=== PATIENT | male | born 1980 | race Hispanic/Latino ===

== ENCOUNTER 2020-08-09 | Emergency (ER) | payer BC, SELFPAY ==
--- NOTE | 2020-08-09 15:38 | ER ---
Nurse's Notes [facility] Name: Wily Cooper Age: 40 yrs Sex: Male : 1980 Arrival Date: 08/09/2020 Time: 14:02 Bed Waiting Private MD: Diagnosis: Assessment: 08/09 14:44 Reassessment: Called patient to TRAIGE no answer. Bystander states, "I think he left.". ss 15:02 Reassessment: called to triage. Unable to locate patient. ss 15:36 Reassessment: Called again to triage, no answer. Unable to locate patient. Appears to ss have eloped before triage. ED Course: 14:02 Patient arrived in ED. rg4 Administered Medications: No medications were administered Outcome: 15:37 Eloped from waiting room. ss 15:37 Patient left the ED. Signatures: Mary Wilburn, RN RN Meenakshi Guadarrama rg4
== END 2020-08-09 15:37 | disposition left against medical advice (07) ==
DX: Z02.9 Encounter for administrative examinations, unspecified (principal)

== ENCOUNTER 2020-08-09 16:52 | Emergency (ER) | payer SELFPAY ==
--- NOTE | 2020-08-09 17:54 | RAD REPORT ---
EXAM DESCRIPTION: RAD - Foot Left 3 View - 08/09/2020 5:45 pm CLINICAL HISTORY: Left Foot pain status post injury FINDINGS: No fracture or dislocation is seen.
--- NOTE | 2020-08-09 19:46 | ER ---
Nurse's Notes [facility] Name: Wily Cooper Age: 40 yrs Sex: Male : 1980 Arrival Date: 08/09/2020 Time: 16:53 Bed Waiting [facility] MD: Diagnosis: Contusion of left foot Presentation: 08/09 17:25 Chief complaint: Patient states: L foot pain and swelling that began 08/07 after a ss sledge hammer fell onto foot. Pt is ambulatory with steady gait. Coronavirus screen: Client denies travel out of the [place] in the last 14 days. Ebola Screen: Patient denies exposure to infectious person. Patient denies travel to an Ebola-affected area in the 21 days before illness onset. Initial Sepsis Screen: Does the patient meet any 2 criteria? No. Patient's initial sepsis screen is negative. Does the patient have a suspected source of infection? No. Patient's initial sepsis screen is negative. Risk Assessment: Do you want to hurt yourself or someone else? Patient reports no desire to harm self or others. Onset of symptoms was August 07, 2020. 17:25 Method Of Arrival: Ambulatory 17:25 Acuity: ZONIA 4 ss Historical: - Allergies: 17:27 No Known Allergies; ss - PMHx: 17:27 Hypertension; High Cholesterol; ss - PSHx: 17:27 Appendectomy; ss - Immunization history:: Adult Immunizations up to date. - Social history:: Smoking status: Patient denies any tobacco usage or history of. Screenin:41 Abuse screen: Denies threats or abuse. Denies injuries from another. Nutritional lp1 screening: No deficits noted. Tuberculosis screening: No symptoms or risk factors identified. Fall Risk None identified. Assessment: 19:35 Reassessment: Dr. Dickerson assessing patient. lp1 19:40 General: Appears in no apparent distress. Behavior is calm. Pain: Complains of pain in lp1 dorsum of left foot. Neuro: No deficits noted. Cardiovascular: No deficits noted. Respiratory: Respiratory effort is even, unlabored. GI: No signs and/or symptoms were reported involving the gastrointestinal system. : No signs and/or symptoms were reported regarding the genitourinary system. EENT: No signs and/or symptoms were reported regarding the EENT system. Derm: Bruising that is on dorsum of left foot. Musculoskeletal: Swelling present in dorsum of left foot. 19:41 Reassessment: Patient able to bear weight on left foot. lp1 Vital Signs: 17:25 BP 141 / 99; Pulse 100; Resp 15; Temp 98.3(TE); Pulse Ox 99% on R/A; Weight 120.2 kg; ss Height 5 ft. 9 in. (175.26 cm); Pain 8/10; 17:25 Body Mass Index 39.13 (120.20 kg, 175.26 cm) ED Course: 16:53 Patient arrived in ED. rg4 17:26 Triage completed. ss 17:27 Arm band placed on right wrist. ss 17:40 XRAY Foot LEFT 3 View In Process Unspecified. EDMS 19:32 Deny Dickerson MD is Attending Physician. tw4 19:40 Fidelina Paredes, RN is Primary Nurse. lp1 19:41 Patient has correct armband on for positive identification. lp1 19:41 No provider procedures requiring assistance completed. Patient did not have IV access lp1 during this emergency room visit. 19:42 Westley wrap to left foot. lp1 Administered Medications: 19:54 Drug: Ibuprofen 800 mg Route: PO; lp1 19:55 Follow up: Response: Medication administered at discharge. lp1 Outcome: 19:45 Discharge ordered by . tw4 19:55 Discharged to home ambulatory. lp1 19:55 Condition: good 19:55 Discharge instructions given to patient, Instructed on discharge instructions, follow up and referral plans. medication usage, Demonstrated understanding of instructions, follow-up care, medications, Prescriptions given X 1. 19:55 Patient left the ED. lp1 Signatures: Dispatcher [employer] EDKY Mary Wilburn, HEMA RN Fidelina Paredes, RN RN lp1 Meenkashi [facility] Deny Dickerson MD MD 4
--- NOTE | 2020-08-09 19:46 | EDPHYS ---
Physician Documentation [facility] Name: Wily Cooper Age: 40 yrs Sex: Male : 1980 Arrival Date: 08/09/2020 Time: 16:53 Bed Waiting Private MD: ED Physician Deny Dickerson HPI: 08/09 19:39 This 40 yrs old Male presents to ER via Ambulatory with complaints of Foot tw4 Injury. 19:39 The patient presents with an injury. tw4 19:39 The complaints affect the left foot. Context: The problem was sustained at work, tw4 resulted from a heavy object falling, Mechanism of Injury: the patient can fully bear weight, the patient is able to ambulate. Onset: The symptoms/episode began/occurred today. Modifying factors: The symptoms are alleviated by nothing, the symptoms are aggravated by weight bearing, movement. Associated signs and symptoms: The patient has no apparent associated signs or symptoms. The patient has not experienced similar symptoms in the past. Historical: - Allergies: 17:27 No Known Allergies; ss - PMHx: 17:27 Hypertension; High Cholesterol; ss - PSHx: 17:27 Appendectomy; ss - Immunization history:: Adult Immunizations up to date. - Social history:: Smoking status: Patient denies any tobacco usage or history of. ROS: 19:39 MS/extremity: Positive for injury or acute deformity, pain, swelling, tenderness, tw4 Negative for abrasion, bite, contusion, decreased range of motion, deformity, ecchymosis, laceration. 19:39 Constitutional: Negative for fever, chills, and weight loss, Eyes: Negative for injury, pain, redness, and discharge, Cardiovascular: Negative for chest pain, palpitations, and edema, Respiratory: Negative for shortness of breath, cough, wheezing, and pleuritic chest pain, Abdomen/GI: Negative for abdominal pain, nausea, vomiting, diarrhea, and constipation, Back: Negative for injury and pain, MS/Extremity: Negative for injury and deformity, Skin: Negative for injury, rash, and discoloration, Neuro: Negative for headache, weakness, numbness, tingling, and seizure. Exam: 19:39 Constitutional: This is a well developed, well nourished patient who is awake, alert, tw4 and in no acute distress. Head/Face: Normocephalic, atraumatic. 19:39 Musculoskeletal/extremity: Extremities: noted in the left first toe, left second toe, left third toe, left fourth toe and left fifth toe: contusion, ecchymosis, pain, swelling, tenderness, ROM: no acute changes, Circulation is intact in all extremities. Vital Signs: 17:25 BP 141 / 99; Pulse 100; Resp 15; Temp 98.3(TE); Pulse Ox 99% on R/A; Weight 120.2 kg; ss Height 5 ft. 9 in. (175.26 cm); Pain 8/10; 17:25 Body Mass Index 39.13 (120.20 kg, 175.26 cm) ss MDM: 19:39 Differential diagnosis: fracture, sprain, gout. Data reviewed: vital signs, nurses tw4 notes. Data reviewed: radiologic studies, plain films. Data interpreted: Pulse oximetry: Interpretation: normal. Counseling: I had a detailed discussion with the patient and/or guardian regarding: the historical points, exam findings, and any diagnostic results supporting the discharge/admit diagnosis, radiology results. Special discussion: I discussed with the patient/guardian in detail that at this point there is no indication for admission to the hospital. It is understood, however, that if the symptoms persist or worsen the patient needs to return immediately for re-evaluation. 19:45 Patient medically screened. tw4 08/09 17:28 Order name: ABDULKADIRAY Foot LEFT 3 View; Complete Time: 18:46 ss Administered Medications: 19:54 Drug: Ibuprofen 800 mg Route: PO; lp1 19:55 Follow up: Response: Medication administered at discharge. lp1 Disposition: 08/09/20 19:45 Discharged to Home. Impression: Contusion of left foot. - Condition is Stable. - Discharge Instructions: Contusion. - Prescriptions for Ibuprofen 800 mg Oral Tablet - take 1 tablet by ORAL route every 8 hours As needed take with food; 30 tablet. - Medication Reconciliation Form, Thank You Letter, Antibiotic Education, Prescription Opioid Use form. - Follow up: Private Physician; When: Upon discharge from the Emergency Department; Reason: Recheck today's complaints, Continuance of care, Re-evaluation by your physician. - Problem is new. - Symptoms have improved. Signatures: Dispatcher [employer] EDMI Mary Wilburn RN Fidelina Christensen RN RN lp1 Ismael Stark, ACCOUNTING REPRESENTATIVE ACCOUNTING REPRESENTATIVE pm1 Deny Dickerson MD MD tw4 Corrections: (The following items were deleted from the chart) 19:55 19:45 08/09/2020 19:45 Discharged to Home. Impression: Contusion of left foot. lp1 Condition is Stable. Forms are Medication Reconciliation Form, Thank You Letter, Antibiotic Education, Prescription Opioid Use. Follow up: Private Physician; When: Upon discharge from the Emergency Department; Reason: Recheck today's complaints, Continuance of care, Re-evaluation by your physician. Problem is new. Symptoms have improved. tw4
[2020-08-09] MEDS ORDERED: IBUPROFEN 400 MG TAB ONE (20:02)
[2020-08-09 20:55] VITALS: BP 141/99; TEMP 98.3; O2SAT 99
== END 2020-08-09 19:55 | disposition home or self-care (01) ==
LOC: ER 16:52
DX: S90.32XA Contusion of left foot, initial encounter (principal); W22.8XXA Striking against or struck by other objects, initial encounter; Y93.9 Activity, unspecified; Y92.9 Unspecified place or not applicable
CPT/HCPCS: 99284

== ENCOUNTER 2020-08-15 08:58 | Emergency (ER) | payer SELFPAY ==
--- NOTE | 2020-08-15 12:59 | EDPHYS ---
Physician Documentation [facility] Name: Wily Cooper Age: 40 yrs Sex: Male : 1980 Arrival Date: 08/15/2020 Time: 09:00 Bed 20 Private MD: Jamir Sidhu T ED Physician Davi Pérez HPI: 08/15 12:53 This 40 yrs old Male presents to ER via Ambulatory with complaints of Flu rn Symptoms. 12:53 The patient or guardian reports cough, flu symptoms, low-grade fever. rn 12:53 Onset: The symptoms/episode began/occurred 3 day(s) ago. Severity of symptoms: At their rn worst the symptoms were mild, in the emergency department the symptoms are unchanged. Modifying factors: The symptoms are alleviated by nothing, the symptoms are aggravated by nothing. The patient has not experienced similar symptoms in the past. The patient has been recently seen by a physician:. Reports cough for 3 days, mild sob, tested neg for COVID x 3, here because still doesn't feel well. . Historical: - Allergies: 09:41 No Known Allergies; ss - PMHx: 09:41 High Cholesterol; Hypertension; ss - PSHx: 09:41 Cholecystectomy; ss - Immunization history:: Adult Immunizations up to date. - Social history:: Smoking status: Patient denies any tobacco usage or history of. - Family history:: not pertinent. - Hospitalizations: : No recent hospitalization is reported. 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 Exam: 12:53 Constitutional: This is a well developed, well nourished patient who is awake, alert, rn and in no acute distress. Head/Face: Normocephalic, atraumatic. ENT: No stridor Cardiovascular: Regular rate and rhythm. No pulse deficits. Respiratory: No increased work of breathing, no retractions or nasal flaring. Neuro: Awake and alert, GCS 15 Vital Signs: 09:38 BP 161 / 105; Pulse 100; Resp 16; Temp 98.6(TE); Pulse Ox 98% on R/A; Weight 122.47 kg; ss Height 5 ft. 9 in. (175.26 cm); Pain 0/10; 12:51 BP 130 / 92; Pulse 98; Resp 17; Pulse Ox 99% on R/A; tw2 09:38 Body Mass Index 39.87 (122.47 kg, 175.26 cm) ss MDM: 11:37 Patient medically screened. rn 12:53 Differential Diagnosis: Bronchitis Influenza Upper Respiratory Infection Viral Syndrome rn Pneumonia. Data reviewed: vital signs, nurses notes, lab test result(s), radiologic studies, plain films, and as a result, I will discharge patient. Test interpretation: by ED physician or midlevel provider: plain radiologic studies, CXR clear of infiltrate. Counseling: I had a detailed discussion with the patient and/or guardian regarding: the historical points, exam findings, and any diagnostic results supporting the discharge/admit diagnosis, lab results, radiology results, the need for outpatient follow up, to return to the emergency department if symptoms worsen or persist or if there are any questions or concerns that arise at home. Special discussion: I discussed with the patient/guardian in detail that at this point there is no indication for admission to the hospital. It is understood, however, that if the symptoms persist or worsen the patient needs to return immediately for re-evaluation. 08/15 11:53 Order name: Flu; Complete Time: 12:52 rn 08/15 11:53 Order name: XRAY Chest (1 view) rn Administered Medications: No medications were administered Disposition: 08/15/20 12:59 Discharged to Home. Impression: Bronchitis, not specified as acute or chronic. - Condition is Stable. - Discharge Instructions: Acute Bronchitis, Adult, Cough, Adult. - Prescriptions for Zithromax Z- Orion 250 mg Oral Tablet - take 1 tablet by ORAL route as directed for 5 days Day 1 - take two (2) tablets one time. Day 2, 3, 4 , 5 take one (1) tablet once daily.; 6 tablet. - Medication Reconciliation Form, Thank You Letter, Antibiotic Education, Prescription Opioid Use, Work release form form. - Follow up: Private Physician; When: As needed; Reason: Recheck today's complaints, Re-evaluation by your physician. - Problem is new. - Symptoms have improved. 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 Impression: Bronchitis, not specified as tw2 acute or chronic. Condition is Stable. Forms are Medication Reconciliation Form, Thank You Letter, Antibiotic Education, Prescription Opioid Use. Follow up: Private Physician; When: As needed; Reason: Recheck today's complaints, Re-evaluation by your physician. Problem is new. Symptoms have improved. rn
--- NOTE | 2020-08-15 12:59 | ER ---
Nurse's Notes [facility] Name: Wily Cooper Age: 40 yrs Sex: Male : 1980 Arrival Date: 08/15/2020 Time: 09:00 Bed 20 Private MD: Jamir Sidhu T Diagnosis: Bronchitis, not specified as acute or chronic Presentation: 08/15 09:38 Chief complaint: Patient states: body aches, sweats and cough that began 3 days ago. Pt ss reports he was exposed to covid on 07/30, and had been swabbed twice which were negative. Pt was swabbed again after his symptoms began, but those results are pending. Coronavirus screen: The client indicates previous COVID test results are pending. Ebola Screen: Patient denies exposure to infectious person. Patient denies travel to an Ebola-affected area in the 21 days before illness onset. Initial Sepsis Screen: Does the patient meet any 2 criteria? No. Patient's initial sepsis screen is negative. Does the patient have a suspected source of infection? No. Patient's initial sepsis screen is negative. Risk Assessment: Do you want to hurt yourself or someone else? Patient reports no desire to harm self or others. Onset of symptoms was August 12, 2020. 09:38 Method Of Arrival: Ambulatory ss 09:38 Acuity: ZONIA 4 ss Historical: - Allergies: 09:41 No Known Allergies; ss - PMHx: 09:41 High Cholesterol; Hypertension; ss - PSHx: 09:41 Cholecystectomy; ss - Immunization history:: Adult Immunizations up to date. - Social history:: Smoking status: Patient denies any tobacco usage or history of. - Family history:: not pertinent. - Hospitalizations: : No recent hospitalization is reported. Screenin:06 Abuse screen: Denies threats or abuse. Nutritional screening: No deficits noted. tw2 Tuberculosis screening: No symptoms or risk factors identified. Fall Risk None identified. Assessment: 11:40 General: Appears in no apparent distress. obese, well groomed, Behavior is calm, tw2 cooperative, appropriate for age. Pain: Denies pain. Neuro: Level of Consciousness is awake, alert, obeys commands, Oriented to person, place, time, situation. Cardiovascular: Patient's skin is warm and dry. Respiratory: Airway is patent Respiratory effort is even, unlabored, Respiratory pattern is regular, symmetrical. GI: No signs and/or symptoms were reported involving the gastrointestinal system. : No signs and/or symptoms were reported regarding the genitourinary system. EENT: Reports nasal congestion nasal discharge. Musculoskeletal: Range of motion: pt reports body aches. 12:55 Reassessment: Patient appears in no apparent distress at this time. No changes from tw2 previously documented assessment. Patient and/or family updated on plan of care and expected duration. Pain level reassessed. Patient is alert, oriented x 3, equal unlabored respirations, skin warm/dry/pink. 13:01 Reassessment: provider at bedside at this time. tw2 13:07 Reassessment: Patient appears in no apparent distress at this time. No changes from tw2 previously documented assessment. Patient and/or family updated on plan of care and expected duration. Pain level reassessed. Patient is alert, oriented x 3, equal unlabored respirations, skin warm/dry/pink. Vital Signs: 09:38 BP 161 / 105; Pulse 100; Resp 16; Temp 98.6(TE); Pulse Ox 98% on R/A; Weight 122.47 kg; ss Height 5 ft. 9 in. (175.26 cm); Pain 0/10; 12:51 BP 130 / 92; Pulse 98; Resp 17; Pulse Ox 99% on R/A; tw2 09:38 Body Mass Index 39.87 (122.47 kg, 175.26 cm) ED Course: 09:00 Patient arrived in ED. ag5 09:00 Jamir Sidhu MD is Private Physician. 5 09:40 Triage completed. 09:41 Arm band placed on right wrist. 11:36 Bed in low position. Call light in reach. Pulse ox on. NIBP on. tw2 11:37 Davi Pérez MD is Attending Physician. rn 11:38 Evi Spencer RN is Primary Nurse. tw2 12:53 XRAY Chest (1 view) In Process Unspecified. EDMS 13:06 No provider procedures requiring assistance completed. Patient did not have IV access tw2 during this emergency room visit. Administered Medications: No medications were administered Outcome: 12:59 Discharge ordered by . rn 13:06 Discharged to home ambulatory. tw2 13:06 Condition: stable 13:06 Discharge instructions given to patient, Instructed on discharge instructions, follow up and referral plans. medication usage, Demonstrated understanding of instructions, follow-up care, medications, Prescriptions given X 1. 13:07 Patient left the ED. tw2 Signatures: Dispatcher [employer] EDMS Davi Pérez MD MD rn Smirch, Shelby, RN RN ss Evi Spencer RN RN tw2 Mag Muro ag5 Corrections: (The following items were deleted from the chart) 11:39 09:38 Acuity: ZONIA 3 [facility]
--- NOTE | 2020-08-15 13:19 | RAD REPORT ---
EXAM DESCRIPTION: RAD - Chest Single View - 08/15/2020 12:53 pm CLINICAL HISTORY: COUGH Chest pain. COMPARISON: CHEST SINGLE VIEW dated 04/14/2011 FINDINGS: Portable technique limits examination quality. The lungs are grossly clear. The heart is normal in size. No displaced fractures. IMPRESSION: No acute intrathoracic process suspected.
[2020-08-15 13:32] VITALS: TEMP 98.6
[2020-08-15 13:33] VITALS: BP 130/92; O2SAT 99
== END 2020-08-15 13:07 | disposition home or self-care (01) ==
LOC: ER 08:58
DX: J40 Bronchitis, not specified as acute or chronic (principal)
CPT/HCPCS: 71045; 87804; 99283

== ENCOUNTER 2023-06-28 18:42 | Emergency (ER) | payer OTHER, BC ==
--- OUTSIDE RECORDS SUMMARY | 2023-06-28 18:46 | XMS REPORT | Continuity of Care Document ---
:[address] [facility] t Address [address] [facility] [address] [place] [address] Care Team Providers Name Role Phone Modesto Boswell Primary Care Physician VERO KUHN Attending Clinician Unavailable MODESTO BOSWELL Attending Clinician Unavailable LAB90 Attending Clinician Unavailable Melia Allison RD Attending Clinician MARCO ANTONIO JESUS Attending Clinician Unavailable VERO KUHN Admitting Clinician Unavailable Payers Payer Name Policy Type Policy Number Effective Date Expiration Date S our [place] [id number] 2022 00:00:00 OUT OF STATE CIGNA 2 [id number] 2022 00:00:00 Problems Condition Condition Condition Status Onset Resolution Last Treating Co mments Source Name Details Category Date Date Treatment Clinician Date Well adult Well adult Disease Active Selene richter exam exam 2-20 Seybold 00:00: - 00 Externa l Right Right Disease Active Soo upper upper 2-20 Seybold quadrant quadrant 00:00: - abdominal abdominal 00 Exte rna pain pain l Gastroesop Gastroesop Disease Active Selene richter hageal hageal 2-20 Seybold reflux reflux 00:00: - disease disease 00 Externa without without l esophagiti esophagiti s s Prediabete Prediabete Disease Active 2021-08 Overview : Soo s s 2-28 Formattin Seybold 00:00: g of this - 00 note Externa might be l different from the original. Lab 07/2022 A1c 6.3 Class 3 Class 3 Disease Active 2021-08 Soo severe severe 2- Seybold obesity obesity 00:00: - due to due to 00 Externa excess excess l calories calories with with serious serious comorbidit comorbidit y and body y and body mass index mass index (BMI) of (BMI) of 40.0 to 40.0 to 44.9 in 44.9 in adult adult Reactive Reactive Disease Active 2021-08 Dayne y airway airway 2- Seybold disease disease 00:00: - without without 00 Externa complicati complicati l on on Chronic Chronic Disease Active 2021-08 Soo cough cough 09-30 Seybold 00:00: - 00 Externa l History of History of Disease Active 2021-08 Selene richter COVID-19 COVID-19 2- Seybol d 00:00: - 00 Externa l Snoring Snoring Disease Active 2021-08 Soo 2- Seybold 00:00: - 00 Externa l Chronic Chronic Disease Active 2021-08 Soo bilateral bilateral 2 Seyb old low back low back 00:00: - pain pain 00 Externa without without l sciatica sciatica Anxiety Anxiety Disease Active 2021-08 Soo 2- Seybold 00:00: - 00 Externa l Primary Primary Disease Active 2021-08 Soo hypertensi hypertensi 09-30 Se ybold on on 00:00: - 00 Externa l Allergies, Adverse Reactions, Alerts This patient has no known allergies or adverse reactions. Social History Social Habit Start Date Stop Date Quantity Comments Source History SDOH Soo Larioso ld Alcohol Binge - External History SDOH Soo Larioso ld Alcohol Frequency - Exter nal History SDOH Soo Larioso ld Alcohol Std Drinks - Exte rnal Gender identity [facility] Alcohol intake 2023-04-25 2023-04-25 Ex-drinker [facility] 00:00:00 00:00:00 (finding) History of Social 2023-04-25 2023-04-25 [facility] 00:00:00 00:00:00 Exposure to 2022-09-23 2022-10-03 Not sure [facility] SARS-CoV-2 (event) 00:00:00 09:56:00 Tobacco use and 2022-09-24 2022-09-24 Smokeless tobacco [facility] exposure 00:00:00 00:00:00 non-user Alcohol Comment 2022-07-30 2022-07-30 Sober in 2019 Soo Hortonybold 00:00:00 00:00:00 - External Education 2022-07-30 2022-07-30 16 Soo Hortonybold 00:00:00 00:00:00 - External Sex Assigned At [birth year] [facility] 00:00:00 00:00:00 Smoking Status Start Date Stop Date Source Never smoked tobacco [facility] Medications Ordered Filled Start Stop Current Ordering Indication Dosage Frequency Signature Comments Components Source Medication Medication Date Date Medication? Clinician (SIG) Name Name ALBUTEROL Yes 2{puff} [id number] Inhale 2 Soo SULFATE HFA 4-10 [id number] puffs into Seybold IN 16:24: 3D the lungs - 54 3 times Externa daily as l needed Losartan Yes [id number] 100mg Take 1 Ke lsey Potassium 4-10 tablet Seybold (COZAAR) 00:00: (100 mg - 100 MG oral 00 total) by Ext chris Tablet mouth l daily BISOPROLOL- Yes [id number] 1{tbl} Take 1 Soo HCTZ 4-10 tablet by Seybold 2.5-6.25 MG 00:00: mouth - oral Tablet 00 daily Externa l Semaglutide 2022- No [id number] .25mg Inject Soo -Weight 3-20 04-10 104 0.25 mg Seybold Management 00:00: 00:00 into the - (Wegovy) 00 :00 skin once Tracer Clerk a 0.25 a week l MG/0.5ML subcutaneou s Solution Auto-inject or Pantoprazol Yes 40 mg = 1 K elsey e Sodium 3-06 tab, PO, Seybold (Protonix) 00:00: Daily, # - 40 MG oral 00 30 tab, 3 Exte rna Tablet Refill(s), l Delayed Pharmacy: Response [id number], 175.26, cm, 10/11/22 6:31:00 DEBRANDER, Height, 125.455, kg, 10/11/22 6:31:00 DEBRANDER, Weight Sucralfate Yes 1 gm = 1 Clyde sey (Carafate) 3-06 tab, PO, Seybo ld 1 g oral 00:00: QID-Before - Tablet 00 Meals, # Externa 56 tab, 0 l Refill(s), Pharmacy: [facility], 175.26, cm, 10/11/22 6:31:00 DEBRANDER, Height, 125.455, kg, 10/11/22 6:31:00 DEBRANDER, Weight ALBUTEROL Yes 2{puff} Q.[id number] Inhale 2 Soo SULFATE HFA 2-20 [id number] puffs into Seybold IN 09:38: 3D the lungs - 29 3 times Externa daily as l needed Venlafaxine Yes [id number] 37.5mg Take 1 Soo HCl 37.5 MG 2-20 tablet Seybol d oral Tablet 00:00: (37.5 mg - 00 total) by Externa mouth l daily Semaglutide Yes [id number] .25mg Inject Soo (0.25 or 2-20 104 0.25 mg Seybold 0.5 00:00: into the - mg/dose) 2 00 skin once Exte rna mg/1.5 mL a week l SQ Solution Pen-Injecto r Venlafaxine 2022- No [id number] 37.5mg Take 1 Soo HCl 37.5 MG 2-20 04-10 tablet Seybo ld oral Tablet 00:00: 00:00 (37.5 mg - 00 :00 total) by Externa mouth l daily HYDROcodone 2022- No Kelse y -Acetaminop 09-16-10 Seybold hen 7.5-325 00:00: 00:00 - MG oral 00 :00 Externa Tablet l Ondansetron 2022- No Kelse y (ZOFRAN) 4 2-04 11-10 Seybold MG oral 00:00: 00:00 - TABLET 00 :00 Externa DISPERSIBLE l bisoprolol- 2022-0 Yes [facility] hydroCHLORO 1-16 Health thiazide 00:00: (Ziac) 00 2.5-6.25 MG tablet losartan 2022-0 Yes [facility] (Cozaar) 1-16 Health 100 MG 00:00: tablet 00 bisoprolol- 3-0 Yes [facility] hydroCHLORO 1-16 Health thiazide 00:00: (Ziac) 00 2.5-6.25 MG tablet losartan 2022-0 Yes [facility] (Cozaar) 1-16 Health 100 MG 00:00: tablet 00 losartan 2022-0 Yes [facility] (Cozaar) 1-16 Health 100 MG 00:00: tablet 00 bisoprolol- 3-0 2023- No [facility] hydroCHLORO 1-16 09-18 Health thiazide 00:00: 00:00 (Ziac) 00 :00 2.5-6.25 MG tablet ALBUTEROL 2021-08 Yes 2{puff} Q.[id number] Inhale 2 Soo SULFATE HFA 2-23 [id number] puffs into Seybold IN 14:42: 3D the lungs - 24 3 times Externa daily as l needed Fluticasone 2021-08 Yes [id number] 1{puff} Inhale 1 Soo -Salmeterol 2-23 [id number] puff into Seybold (Advair 00:00: the lungs - Diskus) 00 2 times Externa 250-50 daily l MCG/ACT inhalation AEROSOL POWDER, BREATH ACTIVATED Losartan 2021-08 Yes [id number] 100mg Take 1 Ke lsey Potassium 2-23 tablet Seybold 100 MG oral 00:00: (100 mg - Tablet 00 total) by Externa mouth l daily BISOPROLOL- 2021-08 Yes [id number] 1{tbl} Take 1 Soo HCTZ 2-23 tablet by Seybold 2.5-6.25 MG 00:00: mouth - oral Tablet 00 daily Externa l Fluticasone 2021-08 Yes [id number] 1{puff} Inhale 1 Soo -Salmeterol 2-23 [id number] puff into Seybold (Advair 00:00: the lungs - Diskus) 00 2 times Externa 250-50 daily l MCG/ACT inhalation AEROSOL POWDER, BREATH ACTIVATED Losartan 2021-08 Yes [id number] 100mg Take 1 Ke lsey Potassium 2-23 tablet Seybold 100 MG oral 00:00: (100 mg - Tablet 00 total) by Externa mouth l daily BISOPROLOL- 2021-08 Yes [id number] 1{tbl} Take 1 Soo HCTZ 2-23 tablet by Seybold 2.5-6.25 MG 00:00: mouth - oral Tablet 00 daily Externa l Fluticasone 2021-08 Yes [id number] 1{puff} Inhale 1 Soo -Salmeterol 2- [id number] puff into Seybold (Advair 00:00: the lungs - Diskus) 00 2 times Externa 250-50 daily l MCG/ACT inhalation AEROSOL POWDER, BREATH ACTIVATED Losartan 2021-08- No [id number] 100mg Take 1 K elsey Potassium 2-23 04-10 tablet Seybold 100 MG oral 00:00: 00:00 (100 mg - Tablet 00 :00 total) by Externa mouth l daily BISOPROLOL- 2021-08- No [id number] 1{tbl} Take 1 Soo HCTZ 2-23 04-10 tablet by Seybold 2.5-6.25 MG 00:00: 00:00 mouth - oral Tablet 00 :00 daily Externa l Fluticasone 2021-08- No [id number] 1{puff} Inhale 1 Soo -Salmeterol 2-23 12-23 [id number] puff into Seybold (Advair 00:00: 00:00 the lungs - Diskus) 00 :00 2 times Externa 250-50 daily l MCG/ACT inhalation AEROSOL POWDER, BREATH ACTIVATED Losartan 2021-08- No 100mg Take 100 Clyde sey Potassium 2-09 12-23 mg by Seybold 100 MG oral 00:00: 00:00 mouth - Tablet 00 :00 daily Externa l guaiFENesin 2021-08- No Kelse y -Codeine 1-14 12-23 Seybold 100-10 00:00: 00:00 - MG/5ML oral 00 :00 Externa Solution l BISOPROLOL- 2021-08- No Take by Gordo gene HCTZ 0-27 12-23 mouth Seybold 2.5-6.25 MG 00:00: 00:00 daily - oral Tablet 00 :00 Externa l Vital Signs Vital Name Observation Time Observation Value Comments Source Systolic blood 2023-04-25 127 mm[Hg] [facility] pressure 17:52:00 Diastolic blood 2023-04-25 85 mm[Hg] [facility] pressure 17:52:00 Heart rate 2023-04-25 97 /min [facility] 17:52:00 Body height 2023-04-25 175.3 cm [facility] 17:52:00 Body weight 2023-04-25 105.824 kg [facility] 17:52:00 BMI 2023-04-25 34.45 kg/m2 [facility] 17:52:00 Systolic blood 2022-11-15 110 mm[Hg] Soo Seybol d pressure 21:20:00 - External Diastolic blood 2022-11-15 58 mm[Hg] Soo Seybo ld pressure 21:20:00 - External Heart rate 2022-11-15 107 /min Soo Seybold :20: - External Body temperature 2022-11-15 35.39 Eva Soo Seyb old 21:20:00 - External Respiratory rate 2022-11-15 15 /min Soo Seyb old 21:20:00 - External Body height 2022-11-15 175.3 cm Soo Seybold :20:00 - External Body weight 2022-11-15 127.007 kg Soo Seybold 21:20:00 - External BMI 2022-11-15 41.35 kg/m2 Soo Seybold :20:00 - External Body height 2022-10-05 175.3 cm [facility] 21:25:00 Body weight 2022-10-05 125.964 kg Per last clinic [facility] 21:25:00 visit. BMI 2022-10-05 41.01 kg/m2 [facility] 21:25:00 Systolic blood 2022-09-27 145 mm[Hg] Soo Seybol d pressure 15:37:00 - External Diastolic blood 2022-09-27 64 mm[Hg] Soo Seybo ld pressure 15:37:00 - External Heart rate 2022-09-27 110 /min Soo Seybold 15:37:00 - External Body temperature 2022-09-27 35.94 Eva Soo Seyb old 15:37:00 - External Respiratory rate 2022-09-27 22 /min Soo Larios old 15:37:00 - External Body height 2022-09-27 175.3 cm Soo Hortonybold 15:37:00 - External Body weight 2022-09-27 126.1 kg Soo Lariosold 15:37:00 - External BMI 2022-09-27 41.05 kg/m2 Soo Lariosold 15:37:00 - External Oxygen saturation 2022-09-27 98 /min Soo Cal bold in Arterial blood 15:37:00 - External by Pulse oximetry Systolic blood 2022-09-24 146 mm[Hg] [facility] pressure 16:38:00 Diastolic blood 2022-09-24 84 mm[Hg] [facility] pressure 16:38:00 Heart rate 2022-09-24 92 /min [facility] 16:38:00 Body height 2022-09-24 175.3 cm [facility] 16:38:00 Body weight 2022-09-24 125.964 kg [facility] 16:38:00 BMI 2022-09-24 41.01 kg/m2 [facility] 16:38:00 Systolic blood 2022-07-30 144 mm[Hg] patient has not Soo Pierre bold pressure 20:25:00 taken blood - External pressure medication today Diastolic blood 2022-07-30 94 mm[Hg] patient has not Soo ybold pressure 20:25:00 taken blood - External pressure medication today Heart rate 2022-07-30 132 /min Soo Lariosold 20:25:00 - External Body temperature 2022-07-30 36 Eva Soo Larios old 20:25:00 - External Respiratory rate 2022-07-30 16 /min Soo Larios old 20:25:00 - External Body height 2022-07-30 175.3 cm Soo Dumont 20:25:00 - External Body weight 2022-07-30 126.1 kg Soo Hortonybalivia 20:25:00 - External BMI 2022-07-30 41.05 kg/m2 Soo Hortonybold 20:25:00 - External Procedures This patient has no known procedures. Encounters Start End Encounter Admission Attending Care Care Encounter Source Date/Time Date/Time Type Type Clinicians Facility Department ID 2023-02-25 Outpatient [facility] [id number] [place] 08:44:07 [id number] [facility] 2023-02-23 [place]patient [place] [id number] [place] 14:41:11 [id number] Health 2023-02-11 [place]patient [place] [id number] [place] 14:13:43 [id number] [facility] 2022-12-07 Outpatient [facility] UT [id number] [place] 09:30:49 [id number] [facility] 2022-11-22 Outpatient [place] [id number] [place] 15:17:49 [id number] [facility] 2022-11-16 Outpatient [facility] UT [id number] [place] 11:41:12 [id number] [facility] 2022-10-15 Outpatient [facility] UT [id number] UT 11:48:55 [id number] [facility] 2022-10-07 Outpatient [facility] [id number] [place] 13:33:22 [id number] [facility] 2022-09-30 Outpatient [facility] [id number] [place] 10:23:53 [id number] [facility] 2022-09-27 Outpatient [facility] [id number] [place] 13:18:49 [id number] [facility] 2022-09-24 Outpatient [facility] UT [id number] UT 10:59:52 [id number] [facility] 2022-09-23 Outpatient [facility] UT [id number] UT 14:18:05 [id number] [facility] 2022-09-22 Outpatient [facility] [id number] [place] 17:00:52 [id number] [facility] 2022-09-17 Outpatient [facility] [id number] [place] 09:32:53 [id number] [facility] 2022-08-30 Outpatient [facility] UT [id number] UT 12:54:02 [id number] Health 2023-06-21 2023-06-21 Outpatient HATTIE [facility] [id number] [place] 13:15:00 13:15:00 [facility]al 2023-04-25 2023-04-25 Office HATTIE [facility] [id number] [place] 12:00:00 13:26:45 Visit VERO SUGAR [id number] [facility] [id number] [id number] AND 4 WOMENS 2023-03-15 2023-03-15 Outpatient HATTIE, [facility] [id number] [place] 13:45:00 13:52:31 [facility] 2023-03-04 2023-03-04 Outpatient [facility], [facility] [id number] [place] 11:15:00 11:15:00 [facility] 2023-02-15 2023-02-15 Outpatient [facility], [facility] [id number] [place] 14:00:00 14:43:26 [facility] 2023-02-14 2023-02-14 Outpatient PREZAS, SOO BILLY [id number] Soo 15:15:00 15:15:00 MODESTO Seybol d 2023-01-24 2023-01-24 Outpatient PREZAS, SOO BILLY [id number] Soo 00:00:00 00:00:00 MODESTO Seybol d 2023-01-05 2023-01-05 Outpatient PREZAS, SOO BILLY [id number] Soo 00:00:00 00:00:00 MODESTO Seybol d 2022-11-17 2022-11-17 Outpatient PREZAS, SOO BILLY [id number] Soo 00:00:00 00:00:00 MODESTO Seybol d 2022-11-16 2022-11-16 Outpatient PREZAS, SOO BILLY [id number] Soo 00:00:00 00:00:00 MODESTO Seybol d 2022-11-15 2022-11-15 Outpatient LAB90 SOO BILLY [id number] Soo 16:50:00 16:50:00 Seybol d 2022-11-15 2022-11-15 Outpatient PREZAS, SOO BILLY [id number] Soo 16:15:00 16:15:00 MODESTO Seybol d 2022-10-25 2022-10-25 Outpatient PREZAS, SOO BILLY [id number] Soo 09:30:00 09:30:00 MODESTO Seybol d 2022-10-25 2022-10-25 Outpatient PREZAS, SOO SOO [id number] Soo 00:00:00 00:00:00 MODESTO Seybol d 2022-10-11 2022-10-11 Outpatient HATTIE, [facility] [id number] [place] 07:30:00 07:30:00 [facility] 2022-10-10 2022-10-10 Outpatient PREZASSOO [id number] Soo 00:00:00 00:00:00 MODESTO Seybol d 2022-10-05 2022-10-05 Nutrition [facility], [facility] [id number] [place] 15:00:00 15:25:26 Melia CHAPPELL [id number] H [facility] [id number] [facility] [id number] 2022-09-28 2022-09-28 Outpatient PRESOO YOU [id number] Soo 00:00:00 00:00:00 MODESTO Seybol d 2022-09-27 2022-09-27 Outpatient PREZASSOO [id number] Soo 09:30:00 09:30:00 MODESTO Seybol d 2022-09-27 2022-09-27 Outpatient EDINSOO TANG [id number] Soo 08:00:00 08:00:00 MARCO ANTONIO Seybol d 2022-09-24 2022-09-24 Office Hattie [facility] [id number] [place] 10:00:00 11:53:30 Visit Vero PIKE [id number] [facility] [id number] [id number] AND 4 WOMENS 2022-09-20 2022-09-20 Outpatient PRESOO YOU [id number] Soo 09:00:00 09:00:00 MODESTO Seybol d 2022-08-30 2022-08-30 Outpatient SOO BOSWELL [id number] Soo 16:15:00 16:15:00 MODESTO Seybol d 2022-08-10 2022-08-10 Outpatient SOO BOSWELL [id number] Soo 00:00:00 00:00:00 MODESTO Seybol d 2022-08-05 2022-08-05 Outpatient SOO BOSWELL [id number] Soo 00:00:00 00:00:00 MODESTO Seybol d 2022-08-04 2022-08-04 Outpatient SOO BOSWELL [id number] Soo 00:00:00 00:00:00 MODESTO Seybol d 2022-07-30 2022-07-30 Outpatient LAB90 SOO BILLY [id number] Soo 15:15:00 15:15:00 Seybol d 2022-07-30 2022-07-30 Outpatient SOO BOSWELL [id number] Soo 14:30:00 14:30:00 MODESTO Seybol d Results This patient has no known results.
[2023-06-28] MEDS ORDERED: TDAP (DIPHTH,PERTUSS(ACELL),TET VAC) 0.5 ML VIAL IMVAC ONE (19:10)
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
[2023-06-28] MEDS ORDERED: FENTANYL CITR 100 MCG/2 ML ONE (19:31)
[2023-06-28 19:48] LABS: Absolute Lymphocytes (CBC) 1.4 K/uL (0.7-4.9); Hematocrit 43.8 % (39.6-49.0); Lymphocytes % 15.6 % (15.3-44.8); MCV 83.7 fL (80-100); MPV 9.2 fL (7.6-11.3); Platelets 272 thou/uL (152-406); RBC Red Blood Cell Count 5.23 M/uL (4.33-5.43)
[2023-06-28 19:49] LABS: Protime INR 1.06
[2023-06-28 19:58] LABS: Potassium 3.5 mEq/L (3.5-5.1)
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
[2023-06-28 20:37] VITALS: TEMP 98; O2SAT 100
[2023-06-28 20:38] VITALS: BP 151/83
[2023-06-28] MEDS ORDERED: methocarbamoL 750 MG TAB ONE (20:42)
== END 2023-06-28 20:32 | disposition home or self-care (01) ==
LOC: ER 18:42
DX: S00.03XA Contusion of scalp, initial encounter (principal); V49.60XA Unspecified car occupant injured in collision with unspecified motor vehicles in traffic accident, initial encounter; Z79.899 Other long term (current) drug therapy; I10 Essential (primary) hypertension; E78.00 Pure hypercholesterolemia, unspecified
CPT/HCPCS: 85025; 80048; 36415; 86900; 86850; 85610; 86901; 85730; 70450; 72125; 71045; 90471; 96374; 99285; J3010

== ENCOUNTER 2024-01-24 09:09 | Emergency (ER) | payer BC ==
--- OUTSIDE RECORDS SUMMARY | 2024-01-24 09:13 | XMS REPORT | Continuity of Care Document ---
Author Name Unknown Address [address] [facility] [address] [place] [address] [facility] thconnect Address [address] [facility] [address] [place] [address] Care Team Providers Care Architectural Job Captain Name Role Phone Modesto Boswell Primary Care Physician [phone] VERO KUHN Attending Clinician Unavailable MODESTO BOSWELL Attending Clinician Unavailable LAB90 Attending Clinician Unavailable Melia Allison RD Attending Clinician [phone] MARCO ANTONIO JESUS Attending Clinician Unavail able VERO KUHN Admitting Clinician Unavailable Payers Payer Name Policy Type Policy Number Effective Date Expirati on Date Source [place] OUT OF [place] [id number] 2022 00:00:00 [employer] 2 [id number] 2022 00:00:00 Problems Condition Name Condition Details Condition Category Status Onset Date Resolution Date Last Treatment Date Treating Clinician Comments Source Well adult exam Well adult exam Disease Active 09-27 00:00: 00 Soo Dumont - Externa l Right upper quadrant abdominal pain Right upper quadrant abdominal pain Disease Active 09-27 00:00: 00 Soo Lariosold - Externa l Gastroesop hageal reflux disease without esophagiti s Gastroesop hageal reflux disease without esophagiti s Disease Active 09-27 00:00: 00 Soo Seybold - Externa l Prediabete s Prediabete s Disease Active 2021-08 00:00: 00 Overview: Formattin g of this note might be different from the original. Lab 07/2022 A1c 6.3 Soo Seybold - Externa l Primary hypertensi on Primary hypertensi on Disease Active 2021-08 00:00: 00 Soo Seybold - Externa l Class 3 severe obesity due to excess calories with serious comorbidit y and body mass index (BMI) of 40.0 to 44.9 in adult Class 3 severe obesity due to excess calories with serious comorbidit y and body mass index (BMI) of 40.0 to 44.9 in adult Disease Active 2021-08 00:00: 00 Soo Seybold - Externa l Reactive airway disease without complicati on Reactive airway disease without complicati on Disease Active 2021-08 00:00: 00 Soo Seybold - Externa l Chronic cough Chronic cough Disease Active 2021-08 00:00: 00 Soo Seybold - Externa l History of COVID-19 History of COVID-19 Disease Active 2021-08 00:00: 00 Soo Seybold - Externa l Snoring Snoring Disease Active 2021-08 00:00: 00 Soo Seybold - Externa l Chronic bilateral low back pain without sciatica Chronic bilateral low back pain without sciatica Disease Active 2021-08 00:00: 00 Soo Seybold - Externa l Anxiety Anxiety Disease Active 2021-08 00:00: 00 Soo Seybold - Externa l Social History Social Habit Start Date Stop Date Quantity Comments Source History SDOH Alcohol Binge Soo Seybold - External History SDOH Alcohol Frequency Soo Pierre bold - External History SDOH Alcohol Std Drinks Soo Se ybold - External [facility] Sexual orientation [facility] Alcohol intake 2023-04-25 00:00:00 2023-04-25 00:00:00 Ex-drinker (finding) [facility] History of Social function 2023-04-25 00:00:00 2023-04-25 00:00:00 [facility] Exposure to SARS-CoV-2 (event) 2022-09-23 00:00:00 2022-10-03 09:56:00 Not sure [facility] Tobacco use and exposure 2022-09-24 00:00:00 2022-09-24 00:00:00 Smokeless tobacco non-user [facility] Alcohol Comment 2022-07-30 00:00:00 2022-07-30 00:00:00 Sober in 2019 Soo Ojeda Education 2022-07-30 00:00:00 2022-07-30 00:00:00 16 Soo Ojeda Sex Ass[birth year] At 1980 00:00:00 1980 00:00:00 [facility] Smoking Status Start Date Stop Date Source Never smoked tobacco [facility] Medications Ordered Medication Name Filled Medication Name Start Date Stop Date Current Medication? Ordering Clinician Indication Dosage Frequency Signature (SIG) Comments Components Source ALBUTEROL SULFATE HFA IN 11-15 16:24: 54 Yes 2{puff} Q.[id number] 3D Inhale 2 puffs into the lungs 3 times daily as needed Soo mg Losartan Potassium (COZAAR) 100 MG oral Tablet 11-15 00:00: 00 Yes [id number] 100mg Take 1 tablet (100 mg total) by mouth daily Soo mg BISOPROLOL- HCTZ 2.5-6.25 MG oral Tablet 11-15 00:00: 00 Yes [id number] 1{tbl} Take 1 tablet by mouth daily Soo mg Semaglutide -Weight Management (Wegovy) 0.25 MG/0.5ML subcutaneou s Solution Auto-inject or 10-25 00:00: 00 11-15 00:00 :00 No [id number] 104 .25mg Inject 0.25 mg into the skin once a week Soo mg Pantoprazol e Sodium (Protonix) 40 MG oral Tablet Delayed Response 10-11 00:00: 00 Yes 40 mg = 1 tab, PO, Daily, # 30 tab, 3 Refill(s), Pharmacy: [id number], 175.26, cm, 10/11/22 6:31:00 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, Height, 125.455, kg, 10/11/22 6:31:00 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, Weight Soo mg Sucralfate (Carafate) 1 g oral Tablet 10-11 00:00: 00 Yes 1 gm = 1 tab, PO, QID-Before Meals, # 56 tab, 0 Refill(s), Pharmacy: [id number], 175.26, cm, 10/11/22 6:31:00 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, Height, 125.455, kg, 10/11/22 6:31:00 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, Weight Soo mg ALBUTEROL SULFATE HFA IN 09-27 09:38: 29 Yes 2{puff} Q.[id number] 3D Inhale 2 puffs into the lungs 3 times daily as needed Soo mg Semaglutide (0.25 or 0.5 mg/dose) 2 mg/1.5 mL SQ Solution Pen-Injecto r 09-27 00:00: 00 Yes [id number] 104 .25mg Inject 0.25 mg into the skin once a week Soo mg Venlafaxine HCl 37.5 MG oral Tablet 09-27 00:00: 00 11-15 00:00 :00 No [id number] 37.5mg Take 1 tablet (37.5 mg total) by mouth daily Soo mg HYDROcodone -Acetaminop hen 7.5-325 MG oral Tablet 09-16 00:00: 00 11-15 00:00 :00 No Soo mg Ondansetron (ZOFRAN) 4 MG oral TABLET DISPERSIBLE 09-16 00:00: 00 11-15 00:00 :00 No Soo mg losartan (Cozaar) 100 MG tablet -16 00:00: 00 Yes [facility] bisoprolol- hydroCHLORO thiazide (Ziac) 2.5-6.25 MG tablet -16 00:00: 00 04-25 00:00 :00 No [facility] ALBUTEROL SULFATE HFA IN 2021-08 14:42: 24 Yes 2{puff} Q.[id number] 3D Inhale 2 puffs into the lungs 3 times daily as needed Soo mg Fluticasone -Salmeterol (Advair Diskus) 250-50 MCG/ACT inhalation AEROSOL POWDER, BREATH ACTIVATED 2021-08 00:00: 00 Yes [id number] 1{puff} Inhale 1 puff into the lungs 2 times daily Soo mg Losartan Potassium 100 MG oral Tablet 2021-08 00:00: 00 11-15 00:00 :00 No [id number] 100mg Take 1 tablet (100 mg total) by mouth daily Soo mg BISOPROLOL- HCTZ 2.5-6.25 MG oral Tablet 2021-08 00:00: 00 11-15 00:00 :00 No [id number] 1{tbl} Take 1 tablet by mouth daily Soo mg Losartan Potassium 100 MG oral Tablet 2021-08 00:00: 00 07-30 00:00 :00 No 100mg Take 100 mg by mouth daily Soo mg guaiFENesin -Codeine 100-10 MG/5ML oral Solution 2021-08-14 00:00: 00 07-30 00:00 :00 No Soo mg BISOPROLOL- HCTZ 2.5-6.25 MG oral Tablet 2021-08 0 00:00: 00 07-30 00:00 :00 No Take by mouth daily Soo mg Vital Signs Vital Name Observation Time Observation Value Comments S ource Systolic blood pressure 2023-04-25 17:52:00 127 mm[Hg] [facility] Diastolic blood pressure 2023-04-25 17:52:00 85 mm[Hg] [facility] Heart rate 2023-04-25 17:52:00 97 /min [facility] Body height 2023-04-25 17:52:00 175.3 cm [facility] Body weight 2023-04-25 17:52:00 105.824 kg [facility] BMI 2023-04-25 17:52:00 34.45 kg/m2 [facility] Systolic blood pressure 2022-11-15 21:20:00 110 mm[Hg] Soo Seybold - External Diastolic blood pressure 2022-11-15 21:20:00 58 mm[Hg] Soo Seybold - External Heart rate 2022-11-15 21:20:00 107 /min Soo Seybold - External Body temperature 2022-11-15 21:20:00 35.39 Eva Soo Seybold - External Respiratory rate 2022-11-15 21:20:00 15 /min Soo Seybold - External Body height 2022-11-15 21:20:00 175.3 cm Soo Seybold - External Body weight 2022-11-15 21:20:00 127.007 kg Soo Seybold - External BMI 2022-11-15 21:20:00 41.35 kg/m2 Soo Seybold - External Body height 2022-10-05 21:25:00 175.3 cm [facility] Body weight 2022-10-05 21:25:00 125.964 kg Per last clinic visit. [facility] BMI 2022-10-05 21:25:00 41.01 kg/m2 [facility] Systolic blood pressure 2022-09-27 15:37:00 145 mm[Hg] Soo Seybold - External Diastolic blood pressure 2022-09-27 15:37:00 64 mm[Hg] Soo Seybold - External Heart rate 2022-09-27 15:37:00 110 /min Soo Seybold - External Body temperature 2022-09-27 15:37:00 35.94 Eva Soo Seybold - External Respiratory rate 2022-09-27 15:37:00 22 /min Soo Seybold - External Body height 2022-09-27 15:37:00 175.3 cm Soo Seybold - External Body weight 2022-09-27 15:37:00 126.1 kg Soo Seybold - External BMI 2022-09-27 15:37:00 41.05 kg/m2 Soo Seybold - External Oxygen saturation in Arterial blood by Pulse oximetry 2022-09-27 15:37:00 98 /min Soo Seybold - External Systolic blood pressure 2022-09-24 16:38:00 146 mm[Hg] [facility] Diastolic blood pressure 2022-09-24 16:38:00 84 mm[Hg] [facility] Heart rate 2022-09-24 16:38:00 92 /min [facility] Body height 2022-09-24 16:38:00 175.3 cm [facility] Body weight 2022-09-24 16:38:00 125.964 kg [facility] BMI 2022-09-24 16:38:00 41.01 kg/m2 [facility] Systolic blood pressure 2022-07-30 20:25:00 144 mm[Hg] patient has not taken blood pressure medication today Soo Seybold - External Diastolic blood pressure 2022-07-30 20:25:00 94 mm[Hg] patient has not taken blood pressure medication today Soo Seybold - External Heart rate 2022-07-30 20:25:00 132 /min Soo Hortonybold - External Body temperature 2022-07-30 20:25:00 36 Eva Soo Seybold - External Respiratory rate 2022-07-30 20:25:00 16 /min Soo Seybold - External Body height 2022-07-30 20:25:00 175.3 cm Soo Hortonybold - External Body weight 2022-07-30 20:25:00 126.1 kg Soo Seybold - External BMI 2022-07-30 20:25:00 41.05 kg/m2 Soo Seybold - External Encounters Start Date/Time End Date/Time Encounter Type Admission Type Attending [facility] Facility Care Department Encounter ID Source 2023-02-25 08:44:07 Outpatient [facility] [id number] [facility] 2023-02-23 14:41:11 Outpatient [facility] [id number] [facility] 2023-02-11 14:13:43 Outpatient [facility] [id number] [facility] 2022-12-07 09:30:49 Outpatient [facility] [id number] [facility] 2022-11-22 15:17:49 Outpatient [facility] [id number] [facility] 2022-11-16 11:41:12 Outpatient [facility] [id number] [facility] 2022-10-15 11:48:55 Outpatient [facility] [id number] [facility] 2022-10-07 13:33:22 Outpatient [facility] [id number] [facility] 2022-09-30 10:23:53 Outpatient [facility] [id number] [facility] 2022-09-27 13:18:49 Outpatient [facility] [id number] [facility] 2022-09-24 10:59:52 Outpatient [facility] [id number] [facility] 2022-09-23 14:18:05 Outpatient [facility] [id number] [facility] 2022-09-22 17:00:52 Outpatient [facility] [id number] [facility] 2022-09-17 09:32:53 Outpatient [facility] [id number] [facility] 2022-08-30 12:54:02 Outpatient [facility] [id number] [facility] 2023-06-21 13:15:00 2023-06-21 13:15:00 Outpatient VERO KUHN [facility] [id number] [facility] 2023-04-25 12:00:00 2023-04-25 13:26:45 Office Visit VERO KUHN [facility] [id number] [facility] 2023-03-15 13:45:00 2023-03-15 13:52:31 Outpatient VERO KUHN [facility] [id number] [facility] 2023-03-04 11:15:00 2023-03-04 11:15:00 Outpatient VERO KUHN [facility] [id number] [facility] 2023-02-15 14:00:00 2023-02-15 14:43:26 Outpatient VERO KUHN [facility] [id number] [facility] 2023-02-14 15:15:00 2023-02-14 15:15:00 Outpatient PREZAS, MODESTO BILLY SOO [id number] [facility] 2023-01-24 00:00:00 2023-01-24 00:00:00 Outpatient PREZAS, MODESTO BILLY SOO [id number] [facility] 2023-01-05 00:00:00 2023-01-05 00:00:00 Outpatient PREZAS, MODESTO BILLY SOO [id number] [facility] 2022-11-17 00:00:00 2022-11-17 00:00:00 Outpatient PREZAS, MODESTO BILLY SOO [id number] [facility] 2022-11-16 00:00:00 2022-11-16 00:00:00 Outpatient PREZAS, MODESTO SOO BILLY [id number] [facility] 16:50:00 2022-11-15 16:50:00 Outpatient LAB90 SOO SOO [id number] [facility] 2022-11-15 16:15:00 2022-11-15 16:15:00 Outpatient PREZAS, MODESTO SOO BILLY [id number] [facility] 2022-10-25 09:30:00 2022-10-25 09:30:00 Outpatient PREZAS, MODESTO SOO BILLY [id number] [facility] 2022-10-25 00:00:00 2022-10-25 00:00:00 Outpatient PREZAS, MODESTO SOO BILLY [id number] [facility] 2022-10-11 07:30:00 2022-10-11 07:30:00 Outpatient VERO KUHN [facility] [id number] [facility] 2022-10-10 00:00:00 2022-10-10 00:00:00 Outpatient PREZAS, MODESTO SOO BILLY [id number] [facility] 2022-10-05 15:00:00 2022-10-05 15:25:26 [facility] Melia Allison [facility] [id number] [facility] 2022-09-28 00:00:00 2022-09-28 00:00:00 Outpatient PREZAS, MODESTO BILLY SOO [id number] [facility] 2022-09-27 09:30:00 2022-09-27 09:30:00 Outpatient PREZAS, MODESTO SOO BILLY [id number] [facility] 2022-09-27 08:00:00 2022-09-27 08:00:00 Outpatient EDIN, MARCO ANTONIO SOO BILLY [id number] [facility] 2022-09-24 10:00:00 2022-09-24 11:53:30 Office Visit Vero Kuhn [facility] [id number] [facility] 2022-09-20 09:00:00 2022-09-20 09:00:00 Outpatient PREZAS, MODESTO SOO BILLY [id number] [facility] 2022-08-30 16:15:00 2022-08-30 16:15:00 Outpatient PREZAS, MODESTO SOO BILLY [id number] [facility] 2022-08-10 00:00:00 2022-08-10 00:00:00 Outpatient PREZAS, MODESTOZEKE BILLY [id number] [facility] 2022-08-05 00:00:00 2022-08-05 00:00:00 Outpatient PREZAS, MODESTO BILLY [id number] [facility] 2022-08-04 00:00:00 2022-08-04 00:00:00 Outpatient PREZAS, MODESTO BILLY [id number] [facility] 2022-07-30 15:15:00 2022-07-30 15:15:00 Outpatient LAB SOO BILLY [id number] [facility] 2022-07-30 14:30:00 2022-07-30 14:30:00 Outpatient MODESTO BOSWELL [id number] Soo [facility]ont
[2024-01-24] MEDS ORDERED: FENTANYL CITR 100 MCG/2 ML ONE (09:56)
[2024-01-24 10:13] LABS: Absolute Lymphocytes (CBC) 0.7 K/uL (0.7-4.9); Absolute Monocytes 0.7 K/uL (0.1-1.3); Absolute Neutrophil 10.7 K/uL (1.8-8.0); Basophils % 0.2 % (0-1.3); Eosinophils % 0.4 % (0-4.4); Hematocrit 35.7 % (39.6-49.0); Hemoglobin 12.2 g/dL (13.6-17.9); Lymphocytes % 5.6 % (15.3-44.8); MCH 29.7 pg (27.0-35.0); MCHC 34.2 g/dL (32.0-36.0); MPV 7.8 fL (7.6-11.3); Monocytes % 5.5 % (3.3-12.3); Neutrophils % 88.3 % (41.7-73.7); Nucleated Red Blood Cells % 0.1 % (0-0); Platelets 395 thou/uL (152-406); Red Cell Distribution Width 13.4 % (12.1-15.2)
[2024-01-24 10:18] LABS: PT Prothrombin Time 12.2 SECONDS (9.5-12.5); Protime INR 1.11
[2024-01-24 10:26] LABS: Anion Gap 5.6 mEq/L (5.0-15.0); Potassium 3.6 mEq/L (3.5-5.1)
[2024-01-24 10:31] LABS: Blood Morphology Comment NOT SEEN (NOT SEEN); Platelet Estimate ADEQ; White Blood Cell Scan OK (OK)
[2024-01-24] MEDS ORDERED: KETOROLAC 30 MG/ML INJ ONE (11:24)
--- NOTE | 2024-01-24 12:34 | RAD REPORT ---
EXAM DESCRIPTION: RAD - Ankle Left 3 View - 01/24/2024 10:05 am CLINICAL HISTORY: injury, swelling COMPARISON: No comparisons TECHNIQUE: Left ankle, 3 views. FINDINGS: Comminuted and mildly displaced fracture of the calcaneus. No dislocation or periosteal re action. No joint effusion seen. No joint space narrowing. Pronounced soft tissue swelling about the h eel, most notable laterally. IMPRESSION: Comminuted and mildly displaced fractures of the calcaneus.
--- NOTE | 2024-01-24 12:34 | RAD REPORT ---
EXAM DESCRIPTION: US - Extremity Venous Uni Ltd - 01/24/2024 10:32 am CLINICAL HISTORY: Swelling, evaluate for left lower extremity DVT COMPARISON: None. TECHNIQUE: Real-time sonographic evaluation of the left lower extremity deep venous system was perfo rmed. FINDINGS: Normal compressibility, flow augmentation, phasic flow and spontaneous flow is identified in the left lower extremity deep venous system. No intraluminal filling defects seen. IMPRESSION: No DVT in the left lower extremity.
--- NOTE | 2024-01-24 13:35 | RAD REPORT ---
EXAM DESCRIPTION: RAD - Ankle Right 3 View - 01/24/2024 1:28 pm CLINICAL HISTORY: PAIN COMPARISON: Ankle Left 3 View dated 01/24/2024 FINDINGS: Subtle lucency seen in the posterior calcaneus suspicious for fracture. Correlation with p ain in this region is recommended. No additional fracture seen.
[2024-01-24 14:02] VITALS: BP 133/81; TEMP 97.8; O2SAT 99
--- NOTE | 2024-01-24 14:12 | EKG ---
Test Date: 2024-01-24 Test Time: 10:34:56 Bowling Ball Finisher: ALFREDO MEASUREMENT RESULTS: Intervals: Rate: 69 DC: 140 QRSD: 98 QT: 394 QTc: 422 Boomer: P: 80 DC: 140 QRS: 80 T: 49 INTERPRETIVE STATEMENTS: Normal sinus rhythm Normal ECG Compared to ECG 04/14/2011 21:03:17 No significant changes Electronically Signed On 01-24-24 14:10:21 CDT by Kartik Murguia
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
== END 2024-01-24 13:51 | disposition home or self-care (01) ==
LOC: ER 09:09
PROC: 2W3RX1Z Immobilization of Left Lower Leg using Splint (ICD-10-PCS; principal; 2024-01-24)
DX: S92.002A Unspecified fracture of left calcaneus, initial encounter for closed fracture (principal)
CPT/HCPCS: 93005; 85025; 80048; 36415; 85610; 85730; 73610 ×2; 93971; 29515; J3010